=== PATIENT | female | born 1935 | race Caucasian/White ===

== ENCOUNTER 2020-04-29 02:20 | Emergency (ER) | payer OTHER, MEDICARE ==
[~2020-04-29] VITALS: Ht 152.4 cm; Wt 77.3 kg
[2020-04-29] MEDS ORDERED: NITROGLYCERIN 0.4 MG SUBL TABLET SL PRN (03:45)
[2020-04-29] MEDS ORDERED: ASPIRIN 81 MG CHEW TABLET PO ONE (03:45)
[2020-04-29 03:46] VITALS: BP 159/78
[2020-04-29 04:00] LABS: BASO # 0.1 10^3/uL (0.0-0.2); BASO % 0.6 % (0.0-1.0); EOS # 0.1 10^3/uL (0.0-0.5); EOS % 0.9 % (0.0-3.0); HEMATOCRIT 42.6 % (36.0-47.0); LYMPH # 3.3 10^3/uL (1.5-5.0); MEAN CORPUSCULAR HEMOGLOBIN 29.7 pg (27.0-33.0); MEAN CORPUSCULAR HGB CONC 32.9 g/dl (32.0-36.5); MEAN CORPUSCULAR VOLUME 90.4 fl (80.0-96.0); MONO % 6.6 % (0.0-5.0); NEUTROPHILS # 10.5 10^3/uL (1.5-8.5); NEUTROPHILS % 69.2 % (36.0-66.0); PLATELET COUNT, AUTOMATED 337 10^3/uL (150-450); RED BLOOD COUNT 4.71 10^6/uL (4.00-5.40); WHITE BLOOD COUNT 15.1 10^3/uL (4.0-10.0)
--- NOTE | 2020-04-29 04:02 | REPVR ---
PROCEDURE INFORMATION: Exam: XR Chest, 1 View Exam date and time: 04/29/2020 3:38 AM Age: 84 years old Clinical indication: Other: Dyspnea/cough TECHNIQUE: Imaging protocol: XR of the chest Views: 1 view. COMPARISON: No relevant prior studies available. FINDINGS: Lungs: Two linear opacities are seen in the left upper lobe. There is slight prominence of the interstitium bilaterally. Pleural space: No pleural effusions or pneumothorax identified. Heart/Mediastinum: The heart is enlarged. Bones/joints: Degenerative changes are seen in the left shoulder. IMPRESSION: 1. Cardiomegaly and slight prominence of the interstitium, which may represent mild interstitial pulmonary edema. 2. Linear opacities in the left upper lobe, nonspecific but probably postinflammatory scarring or subsegmental atelectasis. Electronically signed by: Genet Matamoros On 04/29/2020 04:01:42 AM
[2020-04-29 04:31] LABS: ALBUMIN 3.5 GM/DL (3.2-5.2); ALT/SGPT 17 U/L (12-78); BILIRUBIN,DIRECT < 0.1 MG/DL (0.0-0.2); BILIRUBIN,TOTAL 0.2 MG/DL (0.2-1.0); BLOOD UREA NITROGEN 32 MG/DL (7-18); CALCIUM LEVEL 8.8 MG/DL (8.8-10.2); CARBON DIOXIDE LEVEL 24 MEQ/L (21-32); CHLORIDE LEVEL 106 MEQ/L (98-107); CK-MB VALUE MASS 3.6 NG/ML (<3.6); CPK CREATINE PHOSPHOKINASE 56 U/L (26-192); CREATININE FOR GFR 0.66 MG/DL (0.55-1.30); GLOMERULAR FILTRATION RATE > 60.0 (>32); GLUCOSE, FASTING 132 MG/DL (70-100); MB/CK RELATIVE INDEX 6.43 (< OR =4); NT-PRO BNP 1648 PG/ML (<450); POTASSIUM SERUM 3.9 MEQ/L (3.5-5.1); SODIUM LEVEL 137 MEQ/L (136-145); THYROXINE (T4) 7.9 UG/DL (4.5-12.0); TOTAL PROTEIN 6.8 GM/DL (6.4-8.2); TROPONIN I 0.11 NG/ML (< 0.10)
[2020-04-29] MEDS ORDERED: FUROSEMIDE 20MG/2ML VIAL (J1940) IV ONE (05:45)
[2020-04-29 10:25] LABS: CK-MB VALUE MASS 5.9 NG/ML (<3.6); MB/CK RELATIVE INDEX 8.94 (< OR =4); TROPONIN I 0.41 NG/ML (< 0.10)
[2020-04-29] MEDS ORDERED: CART120C PO (11:00)
[2020-04-29] MEDS ORDERED: METO1TAB7 PO (11:00)
[2020-04-29] MEDS ORDERED: ELIQ5TAB PO (11:00)
[2020-04-29] MEDS ORDERED: HEPARIN DRIP 25,000 UNITS in IV 1 EA IV SCH (11:43)
[2020-04-29] MEDS ORDERED: HEPARIN SOD (PORCINE) 5000UNITS/ML 1ML VIAL/SYRINGE IV ONE (11:45)
[2020-04-29 12:24] LABS: INR 1.08; PROTHROMBIN TIME 14.2 SECONDS (12.5-14.3)
[2020-04-29 12:25] LABS: PARTIAL THROMBOPLASTIN TIME 32.8 SECONDS (24.2-38.5)
[2020-04-29 13:00] VITALS: BP 170/80
--- NOTE | 2020-04-30 06:02 | ECGEPIP ---
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
--- NOTE | 2020-04-30 06:06 | ECGEPIP ---
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
== END 2020-04-29 13:15 | disposition short-term general hospital (02) ==
LOC: M ED 02:20
DX: I21.4 Non-ST elevation (NSTEMI) myocardial infarction (principal); J81.0 Acute pulmonary edema; I48.91 Unspecified atrial fibrillation; I44.7 Left bundle-branch block, unspecified; I51.7 Cardiomegaly; Q24.9 Congenital malformation of heart, unspecified; R91.8 Other nonspecific abnormal finding of lung field; Z79.01 Long term (current) use of anticoagulants; Z88.1 Allergy status to other antibiotic agents; Z88.6 Allergy status to analgesic agent; Z88.7 Allergy status to serum and vaccine; Z88.8 Allergy status to other drugs, medicaments and biological substances
CPT/HCPCS: 36415; 71045; 80048; 80076; 82550; 82553; 83880; 84436; 84443; 84484; 85025; 85610; 85730; 93005; 93041; 94760; 96374; 96375; 96376; 99285; J1644; J1940; U0002